=== PATIENT | female | born 1980 | race Caucasian/White ===

== ENCOUNTER → 2018-01-10 15:26 | Outpatient (CLI) | payer OTHER, SELFPAY ==
[2018-01-17 09:48] LABS: HPV APTIMA, High Risk Negative (Negative)
== END ==
PROVIDERS: Visit Provider Nurse Practitioner Women's Health
DX: Z12.4 Encounter for screening for malignant neoplasm of cervix (principal)
CPT/HCPCS: 88175; G0145

== ENCOUNTER → 2019-03-27 09:27 | Outpatient (CLI) | payer OTHER, SELFPAY ==
[2019-03-26 13:19] VITALS: BMI 42.5
[2019-03-27 12:12] LABS: Absolute Lymphocyte Count 2.54 X10^3/uL (0.83-4.51); Absolute Neutrophil Count 6.9 X10^3/uL (2.0-7.7); Basophil# 0.03 X10^3/uL; Basophil% 0.3 % (0-1); Eosinophil# 0.22 X10^3/uL; Eosinophils% 2.2 % (0-5); Hematocrit 40.7 % (37-47); Hemoglobin 12.8 g/dL (12.0-15.0); Lymphocyte # 2.54 X10^3/ul (4.0); Lymphocyte % 24.9 % (19-41); Mean Corp Hgb Conc 31.4 g/dL (32-36); Mean Corpuscular Hgb 28.8 pg (27.0-32.0); Mean Corpuscular Volume 91.5 fL (81-99); Mean Platelet Vol. 11.1 fl (6.2-12.0); Monocyte# 0.51 X10^3/uL; NRBC Flagged by Analyzer 0 % (0-5); Neutrophil # 6.89 X10^3/uL (2.7-7.7); Neutrophil % 67.3 % (47-70); Platelet Count 289 K/mm3 (150-450); RBC Distribution Width SD 43.3 fl (35.1-43.9); Red Blood Count 4.45 M/mm3 (4.2-5.4); White Blood Count 10.2 K/mm3 (4.4-11.0)
[2019-03-27 12:34] LABS: ALB/GLOB Ratio 0.7 RATIO (0.9-2.4); AST(SGOT) 31 U/L (15-37); Alanine Aminotransfer ALT/SGPT 46 U/L (13-56); Albumin, Serum 3.3 g/dL (3.2-5.0); Alkaline Phosphatase 87 U/L (45-117); Anion Gap 5 (5-15); BUN 10 mg/dL (7-18); BUN/Creat Ratio 14.2 RATIO (10-20); Calcium,Total 8.8 mg/dL (8.5-10.1); Chloride 106 mmol/L (98-107); Cholesterol 217 mg/dL (200); Creatinine, Serum 0.71 mg/dL (0.55-1.02); EST Glomerular Filtration Rate 98 mL/min (>60); Est Glom Filt Rate - Afr Amer 119 mL/min (>60); Globulin 4.5 g/dL (2.2-4.2); Glucose 89 mg/dL (74-106); High Density Lipoprotein 69 mg/dL; Potassium 4.2 mmol/L (3.5-5.1); Protein, Total 7.8 g/dL (6.4-8.2); Sodium Level 138 mmol/L (136-145); Triglycerides 178 mg/dL; Very Low Density Lipoprotein 36 mg/dL (5-40)
[2019-03-27 12:37] LABS: Hemoglobin A1c 5.7 % (4.2-6.3)
== END ==
PROVIDERS: PCP Internal Medicine; Visit Provider Internal Medicine
DX: E66.01 Morbid (severe) obesity due to excess calories (principal); Z68.41 Body mass index [BMI] 40.0-44.9, adult; J45.909 Unspecified asthma, uncomplicated
CPT/HCPCS: 36415; 80053; 80061; 83036; 85025

== ENCOUNTER 2019-05-01 14:20 | Outpatient (RCR) | payer SELFPAY ==
[2019-03-26 13:19] VITALS: BMI 42.5
== END 2019-05-01 23:59 ==
LOC: NS 14:20
PROVIDERS: PCP Internal Medicine; Visit Provider Internal Medicine
DX: E78.00 Pure hypercholesterolemia, unspecified (principal); E66.01 Morbid (severe) obesity due to excess calories; Z68.41 Body mass index [BMI] 40.0-44.9, adult
CPT/HCPCS: 97803

== ENCOUNTER 2019-05-15 08:14 | Outpatient (RCR) | payer SELFPAY ==
[2019-03-26 13:19] VITALS: BMI 42.5
== END 2019-05-31 23:59 ==
LOC: NS 08:14
PROVIDERS: PCP Internal Medicine; Visit Provider Internal Medicine
DX: Z71.3 Dietary counseling and surveillance (principal); E66.01 Morbid (severe) obesity due to excess calories; Z68.41 Body mass index [BMI] 40.0-44.9, adult
CPT/HCPCS: 97803

== ENCOUNTER 2019-06-18 15:00 | Outpatient (RCR) | payer SELFPAY ==
[2019-03-26 13:19] VITALS: BMI 42.5
== END 2019-07-01 23:59 ==
LOC: NS 15:00
PROVIDERS: PCP Internal Medicine; Visit Provider Internal Medicine
DX: Z71.3 Dietary counseling and surveillance (principal); E66.01 Morbid (severe) obesity due to excess calories; Z68.41 Body mass index [BMI] 40.0-44.9, adult
CPT/HCPCS: 97803

== ENCOUNTER 2019-07-23 08:30 | Outpatient (RCR) | payer OTHER, SELFPAY ==
[2019-03-26 13:19] VITALS: BMI 42.5
== END 2019-08-01 23:59 ==
LOC: NS 08:30
PROVIDERS: Family Provider Internal Medicine; PCP Internal Medicine; Visit Provider Internal Medicine
DX: Z71.3 Dietary counseling and surveillance (principal); E66.01 Morbid (severe) obesity due to excess calories; Z68.41 Body mass index [BMI] 40.0-44.9, adult
CPT/HCPCS: 97803

== ENCOUNTER 2019-08-20 08:30 | Outpatient (RCR) | payer OTHER, SELFPAY ==
[2019-03-26 13:19] VITALS: BMI 42.5
== END 2019-08-30 23:59 ==
LOC: NS 08:30
PROVIDERS: Family Provider Internal Medicine; PCP Internal Medicine; Visit Provider Internal Medicine
DX: E78.00 Pure hypercholesterolemia, unspecified (principal); Z71.3 Dietary counseling and surveillance; E66.01 Morbid (severe) obesity due to excess calories; Z68.41 Body mass index [BMI] 40.0-44.9, adult
CPT/HCPCS: 97803

== ENCOUNTER 2019-09-18 09:30 | Outpatient (RCR) | payer OTHER, SELFPAY ==
[2019-03-26 13:19] VITALS: BMI 42.5
== END 2019-09-30 23:59 ==
LOC: NS 09:30
PROVIDERS: Family Provider Internal Medicine; PCP Internal Medicine; Visit Provider Internal Medicine
DX: Z71.3 Dietary counseling and surveillance (principal); E66.01 Morbid (severe) obesity due to excess calories; E78.00 Pure hypercholesterolemia, unspecified
CPT/HCPCS: 97803

== ENCOUNTER 2019-10-15 09:30 | Outpatient (RCR) | payer OTHER, SELFPAY ==
[2019-09-26 13:57] VITALS: BMI 42.5
== END 2019-10-30 23:59 ==
LOC: NS 09:30
PROVIDERS: Family Provider Internal Medicine; PCP Internal Medicine; Visit Provider Internal Medicine
DX: Z71.3 Dietary counseling and surveillance (principal); E66.01 Morbid (severe) obesity due to excess calories; E78.00 Pure hypercholesterolemia, unspecified
CPT/HCPCS: 97803

== ENCOUNTER 2019-11-26 10:30 | Outpatient (RCR) | payer OTHER, SELFPAY ==
[2019-09-26 13:57] VITALS: BMI 42.5
== END 2019-11-30 23:59 ==
LOC: NS 10:30
PROVIDERS: Family Provider Internal Medicine; PCP Internal Medicine; Visit Provider Internal Medicine
DX: Z71.3 Dietary counseling and surveillance (principal); E66.01 Morbid (severe) obesity due to excess calories; Z68.41 Body mass index [BMI] 40.0-44.9, adult; E78.00 Pure hypercholesterolemia, unspecified
CPT/HCPCS: 97803

== ENCOUNTER 2019-12-24 09:01 | Outpatient (RCR) | payer OTHER, SELFPAY ==
[2019-09-26 13:57] VITALS: BMI 42.5
== END 2019-12-30 23:59 ==
LOC: NS 09:01
PROVIDERS: Family Provider Internal Medicine; PCP Internal Medicine; Visit Provider Internal Medicine
DX: Z71.3 Dietary counseling and surveillance (principal); E66.01 Morbid (severe) obesity due to excess calories; E78.00 Pure hypercholesterolemia, unspecified; Z68.41 Body mass index [BMI] 40.0-44.9, adult
CPT/HCPCS: 97803

== ENCOUNTER 2020-01-14 08:52 | Outpatient (RCR) | payer OTHER, SELFPAY ==
[2019-09-26 13:57] VITALS: BMI 42.5
== END 2020-01-30 23:59 ==
LOC: NS 08:52
PROVIDERS: Family Provider Internal Medicine; PCP Internal Medicine; Visit Provider Internal Medicine
DX: Z71.3 Dietary counseling and surveillance (principal); E66.01 Morbid (severe) obesity due to excess calories; E78.00 Pure hypercholesterolemia, unspecified; Z68.41 Body mass index [BMI] 40.0-44.9, adult
CPT/HCPCS: 97803

== ENCOUNTER 2020-02-04 09:20 | Outpatient (RCR) | payer OTHER, SELFPAY ==
[2019-09-26 13:57] VITALS: BMI 42.5
== END 2020-03-01 23:59 ==
LOC: NS 09:20
PROVIDERS: Family Provider Internal Medicine; PCP Internal Medicine; Visit Provider Internal Medicine
DX: Z71.3 Dietary counseling and surveillance (principal); E66.01 Morbid (severe) obesity due to excess calories; E78.00 Pure hypercholesterolemia, unspecified; Z68.41 Body mass index [BMI] 40.0-44.9, adult
CPT/HCPCS: 97803

== ENCOUNTER 2020-03-24 13:00 | Outpatient (RCR) | payer OTHER, SELFPAY ==
[2020-02-19 13:48] VITALS: BMI 42.5
== END 2020-03-31 23:59 ==
LOC: NS 13:00
PROVIDERS: Family Provider Internal Medicine; PCP Internal Medicine; Visit Provider Internal Medicine
DX: Z71.3 Dietary counseling and surveillance (principal); E66.01 Morbid (severe) obesity due to excess calories; E78.00 Pure hypercholesterolemia, unspecified; Z68.41 Body mass index [BMI] 40.0-44.9, adult
CPT/HCPCS: 97803

== ENCOUNTER 2020-04-07 10:21 | Outpatient (RCR) | payer OTHER, SELFPAY ==
[2020-02-19 13:48] VITALS: BMI 42.5
== END 2020-05-01 23:59 ==
LOC: NS 10:21
PROVIDERS: Family Provider Internal Medicine; PCP Internal Medicine; Visit Provider Internal Medicine
DX: Z71.3 Dietary counseling and surveillance (principal); E66.01 Morbid (severe) obesity due to excess calories; E78.00 Pure hypercholesterolemia, unspecified; Z68.41 Body mass index [BMI] 40.0-44.9, adult
CPT/HCPCS: 97803

== ENCOUNTER 2020-05-05 10:57 | Outpatient (RCR) | payer OTHER, SELFPAY ==
[2020-02-19 13:48] VITALS: BMI 42.5
== END 2020-05-05 23:59 | disposition home or self-care (01) ==
LOC: NS 10:57
PROVIDERS: Family Provider Internal Medicine; PCP Internal Medicine; Visit Provider Internal Medicine
DX: Z71.3 Dietary counseling and surveillance (principal); E66.01 Morbid (severe) obesity due to excess calories; E78.00 Pure hypercholesterolemia, unspecified; Z68.41 Body mass index [BMI] 40.0-44.9, adult
CPT/HCPCS: 97803

== ENCOUNTER → 2020-09-29 11:00 | Outpatient (CLI) | payer OTHER, SELFPAY ==
[2020-02-19 13:48] VITALS: BMI 42.5
--- NOTE | 2020-09-29 11:26 | MRI_ITS ---
STUDY: MRI RIGHT ANKLE WITHOUT CONTRAST REASON FOR EXAM: Pain in Achilles tendon and palpable mass at the dorsal aspect of the foot for more than 18 months. TECHNIQUE: Standardized fat and water weighted pulse sequences were obtained in all 3 orthogonal planes. COMPARISON: None. FINDINGS: There is mild edema in the posterior medial subcutis adipose space of the ankle and lateral aspect of the distal hindfoot. There is a very small volume of fluid in the distal posterior tibialis tendon sheath (T2 axial images 17, 18). The posterior tibialis tendon is morphologically normal. Normal flexor digitorum longus tendon. Normal flexor hallucis longus tendon. Normal peroneus longus and brevis tendons. Normal tibialis anterior tendon. Normal extensor hallucis longus tendon. There is fluid in the extensor digitorum longus tendon sheath (T2 axial images 8-22). The extensor digitorum longus tendons appear morphologically normal. There is fusiform thickening of the Achilles tendon in the watershed zone measuring 1.1 cm in AP dimension of inversion recovery sagittal images 11, 12) consistent with tendinosis without discrete tendon tear. There is mild edema in Kager''s fat triangle (inversion recovery sagittal images 10-12). Normal plantar fascia. Normal plantar calcaneal tubercles. There is atrophy with partial fat replacement of the abductor digiti minimi muscle (T1 sagittal image 10). Normal distal tibiofibular syndesmotic ligamentous complex. Normal lateral ligamentous complex. Normal subtalar ligaments and sinus tarsi. Normal deltoid ligamentous complexes. Normal plantar calcaneonavicular (spring) ligament. Normal tibiotalar articulation. Normal talar dome. Normal posterior subtalar articulation. There is a nonosseous calcaneonavicular coalition without reactive changes (inversion recovery sagittal image 12). Normal talonavicular articulation. Normal calcaneocuboid articulation. Normal navicular-cuneiform articulations. MRI/Lower Ext Joint Only (Routine) IMPRESSION: Achilles tendinosis. Extensor digitorum longus tenosynovitis, likely accounting for the soft tissue mass. Very mild posterior tibialis tenosynovitis. Nonosseous calcaneonavicular coalition. Atrophy of the abductor digiti minimi muscle. Electronically Signed: Glen Orr MD at 13:23 EDT Tel , Service support ,
== END ==
PROVIDERS: PCP Internal Medicine; Referring Provider Podiatrist; Visit Provider Podiatrist
DX: M25.571 Pain in right ankle and joints of right foot (principal); R22.41 Localized swelling, mass and lump, right lower limb; M76.60 Achilles tendinitis, unspecified leg
CPT/HCPCS: 73721

== ENCOUNTER 2020-10-29 14:00 | Outpatient (RCR) | payer OTHER, SELFPAY ==
[2020-02-19 13:48] VITALS: BMI 42.5
--- NOTE | 2020-10-07 08:51 | HP.PTEVAL_ITS ---
Patient's Visit Information CINDI MENDOSA is a 40 year old F referred to Physical Therapy by Dr. Wicho Sawyer DPM with a diagnosis of B achilles tendonitis. Date of Evaluation: 10/07/20 Physical Therapist: Matthieu Kaur DPT - Visit Plan Frequency: 1-2x /Week Duration: 4-6 Weeks Plan: 1) Start with B G/S stretching, stress frequency of stretching for HEP. 2) add in stick rolling/graston to achilles and G/S complex. 3) Progress to eccentric exercises as tolerated. 4) may use US or DN if needed for pain control. - Subjective Pt. is here today for initial evaluation with diagnosis of B achilles tendonitis with R being worse than L. Pt. reports having pain that started having pain about 18 months ago, no mech of injury. Pt. has increased pain in AMs and worse at the end of the day. Difficulty with prolonged walking. Increased pain: initial waking, walking, descending steps. Decrease pain: getting off feet, but tightens with sitting. Pt. is wearing a night slipt, but unbale to wear at night. 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 PT. is hopeful to reduce symptoms in order to get back to all recreational activites and work activities without limitations. - Pain R achilles Pain Intensity (Out of 10): 6 Pain Intensity Range: 4, 8 L achilles Pain Intensity (Out of 10): 4 Pain Intensity Range: 3, 7 - Objective POSTURE: Pt. has normal posture in stance. Pt. has normal arch height. Normal wt. shifting. PALPATION: Pt. is only tender along B achilles tendons, worse at mid tendon and muscle-tendon junction. R worse than L. NEURO: Normal sensation and normal DTR of BLEs. Pt is able to walk on toes and heels without issues. ROM: Pt has good knee ROM bilaterally. Pt. has good ankle ROM, except for R DF 8deg active, 10deg passive with increase in pain and L DF 6deg active, 9 deg passive mild increase in pain. MMT: Pt. has good strength throughout BLEs, but does have increased pain with standing heel raises in B achilles tendons. R worse than L. GAIT: - Goals Goal 1:: LTG: Pt. to be I with HEP for stretching and eccentric strengthening of B ankle/LEs. Goal Time Frame: 4-6 Weeks Goal 2:: STG: Pt. to have decrease pain with initial walking in AM to 0-2/10 pain in B achilles. Goal Time Frame: 2-4 Weeks Goal 3:: LTG: Pt. to ambulate unlimited distances without increase in B achilles tendon pain. Goal Time Frame: 4-6 Weeks Goal 4:: LTG: Pt. to have increased B ankle DF increased to atleast 15deg of passive motion. Goal Time Frame: 4-6 Weeks Goal 5:: LTG: Pt. to be able to complete SL heel raises x10/ea. leg without increase in symptoms. Goal Time Frame: 4-6 Weeks Goal 6:: LTG: Pt. to complete all work and recreational walking without increase in symptoms. Goal Time Frame: 4-6 Weeks - Rehabilitation Potential Physical Therapy Diagnosis: Pt. has signs and symptoms consistent with B achilles tendonitis. Pt. has been having main for several months and is impact ing her standing, walking, fitness and working tolerance. Pt. has subsequent pain with increased load applied to B achilles tendons and shortened B achilles tendon lengths. Pt. would benefit from PT to address the above limitations progressing back to all recreational activities without limitations. Rehabilitation Potential: Excellent - Anticipated Interventions Patient/Client Instruction: Educate patient on: Condition, Plan of Care, Risk Factors, Benefits of Fitness Program For the Purpose of:: To improve self management, To prevent re-injury, To improve ability to perform tasks related to life management, To improve tolerance to ADL's Therapeutic Exercise to Include: Strength training, Power training, Endurance training, Balance training, Coordination, Agility training, Body mechanics, Passive ROM, Active ROM For the Purpose of:: To decrease pain, To increase ROM, To improve nutrient delivery to tissue, To increase oxygenation perfusion, To improve muscle performance and motor function, To improve ability to perform ADL's, To increase tolerance to activity/condition/position, To improve health of tissue, To decrease soft tissue restriction, To increase flexibility/ROM Ultrasound (thermal/non thermal): Yes For the Purpose of:: To decrease pain, To decrease swelling/inflammation, To increase ROM Thank you for the opportunity to evaluate your patient. For Medicare and Medicare HMO plans, please review the plan of care and approve it. It will need to be FAXED BACK to us at [phone] for Medicare purposes. For Medicare only, by signing this I certify the plan of care. Please let me know if there are questions or concerns regarding this plan of care. Physician Signature: Date:
--- NOTE | 2020-12-06 14:58 | HP.PT.NRP ---
CINDI MENDOSA was seen in my office for initial evaluation on 10/07/20. The following Plan of Care was established for this patient: Initial Frequency: 1-2x /Week Initial Duration: 4-6 Weeks Patient/Client Instruction: Educate patient on: Condition, Plan of Care, Risk Factors, Benefits of Fitness Program For the Purpose of:: To improve self management, To prevent re-injury, To improve ability to perform tasks related to life management, To improve tolerance to ADL's Therapeutic Exercise to Include: Strength training, Power training, Endurance training, Balance training, Coordination, Agility training, Body mechanics, Passive ROM, Active ROM For the Purpose of:: To decrease pain, To increase ROM, To improve nutrient delivery to tissue, To increase oxygenation perfusion, To improve muscle performance and motor function, To improve ability to perform ADL's, To increase tolerance to activity/condition/position, To improve health of tissue, To decrease soft tissue restriction, To increase flexibility/ROM Ultrasound (thermal/non thermal): Yes For the Purpose of:: To decrease pain, To decrease swelling/inflammation, To increase ROM This patient was last seen in our office 10/29/20. Pertinent comments regarding their Physical therapy will appear below: Pt. was seen in PT for her B Achilles tendonitis. She was also doing EPAT during this time frame. At her last visit she was doing much better. She was not been seen in ~6 weeks and will be DC from PT at this point in time. At this point I will be discontinuing this patient from physical therapy. I would be happy to see this patient again in the future if found appropriate by the physician. Thank you! MARVIN BarraganT
== END 2020-10-29 19:00 | disposition home or self-care (01) ==
LOC: PT 14:00
PROVIDERS: PCP Internal Medicine; Referring Provider Podiatrist; Visit Provider Podiatrist
DX: M76.62 Achilles tendinitis, left leg (principal); M76.61 Achilles tendinitis, right leg
CPT/HCPCS: 97110; 97161

== ENCOUNTER → 2021-01-05 12:09 | Outpatient (CLI) | payer OTHER, SELFPAY ==
[2021-01-05 11:42] VITALS: BMI 42.5
== END ==
PROVIDERS: PCP Internal Medicine; Referring Provider Nurse Practitioner Women's Health; Visit Provider Nurse Practitioner Women's Health
DX: L72.3 Sebaceous cyst (principal)
CPT/HCPCS: 87070; 87205

== ENCOUNTER → 2021-02-23 08:11 | Outpatient (CLI) | payer OTHER, SELFPAY ==
[2020-02-19 13:48] VITALS: BMI 42.5
--- NOTE | 2021-02-23 08:42 | BI_ITS ---
MAMMOGRAPHY - BILATERAL SCREENING REASON FOR EXAM: Female, 40 years old. Routine annual screening examination. PERTINENT HISTORY: Non-contributory. TECHNIQUE: Digital bilateral breast sujatha (3D mammographic acquisition) in the CC and MLO projections. 2-D mediolateral oblique (MLO) and craniocaudad (CC) views of both breasts were obtained. CAD: Full Field Digital Mammography with Computer Added Detection was performed. COMPARISON: None. Baseline examination. FINDINGS: Breast Composition: There are scattered areas of fibroglandular density. There are no dominant masses or suspicious calcifications. Small benign appearing bilateral axillary lymph nodes. No other significant abnormalities are identified. BI/SCRN MAMM (CAD)W/SUJATHA BILAT IMPRESSION: Negative screening mammogram. Yearly followup mammogram recommended. (A) ASSESSMENT CATEGORY: BIRADS Category 2: Benign. A letter regarding these results will be sent to the patient by the facility within 30 days. Approximately 10% of breast cancers are not detected by mammography. A normal mammogram should not delay biopsy of a clinically suspicious abnormality. [id number] Electronically Signed: Yuval Sanchez MD at 9:57 EDT , Service support ,
== END ==
PROVIDERS: PCP Internal Medicine; Referring Provider Nurse Practitioner Women's Health; Visit Provider Nurse Practitioner Women's Health
DX: Z12.31 Encounter for screening mammogram for malignant neoplasm of breast (principal)
CPT/HCPCS: 77063; 77067

== ENCOUNTER → 2022-02-17 | Outpatient (CLI) | payer OTHER, SELFPAY ==
[2022-02-17 12:32] LABS: Absolute Lymphocyte Count 2.62 X10^3/uL (0.83-4.51); Absolute Neutrophil Count 6.1 X10^3/uL (2.0-7.7); Basophil# 0.02 X10^3/uL; Basophil% 0.2 % (0-1); Eosinophil# 0.11 X10^3/uL; Eosinophils% 1.2 % (0-5); Hematocrit 40.8 % (37-47); Hemoglobin 12.8 g/dL (12.0-15.0); Lymphocyte # 2.62 X10^3/ul (0.83-4.51); Lymphocyte % 27.8 % (19-41); Mean Corp Hgb Conc 31.4 g/dL (32-36); Mean Corpuscular Volume 92.3 fL (81-99); Mean Platelet Vol. 11.2 fl (6.2-12.0); Monocyte% 5.3 % (0-10); NRBC Flagged by Analyzer 0 % (0-5); Neutrophil # 6.13 X10^3/uL (2.7-7.7); Neutrophil % 65.2 % (47-70); Platelet Count 289 K/mm3 (150-450); RBC Distribution Width CV 13.6 % (11.6-14.6); RBC Distribution Width SD 46.5 fl (35.1-43.9); Red Blood Count 4.42 M/mm3 (4.2-5.4); White Blood Count 9.4 K/mm3 (4.4-11.0)
[2022-02-17 13:08] LABS: ALB/GLOB Ratio 0.9 RATIO (0.9-2.4); AST(SGOT) 20 U/L (15-37); Alanine Aminotransfer ALT/SGPT 22 U/L (13-56); Albumin, Serum 3.5 g/dL (3.2-5.0); Alkaline Phosphatase 78 U/L (45-117); Anion Gap 5 (5-15); BUN 9 mg/dL (7-18); BUN/Creat Ratio 13.8 RATIO (10-20); Calcium,Total 9.2 mg/dL (8.5-10.1); Chloride 107 mmol/L (98-107); Cholesterol 212 mg/dL (200); Creatinine, Serum 0.65 mg/dL (0.55-1.02); EST Glomerular Filtration Rate 106 mL/min (>60); Est Glom Filt Rate - Afr Amer 129 mL/min (>60); Globulin 4.1 g/dL (2.2-4.2); Glucose 98 mg/dL (74-106); High Density Lipoprotein 82 mg/dL; Potassium 4.6 mmol/L (3.5-5.1); Protein, Total 7.6 g/dL (6.4-8.2); Sodium Level 138 mmol/L (136-145); Triglycerides 88 mg/dL; Very Low Density Lipoprotein 18 mg/dL (5-40)
== END | disposition home or self-care (01) ==
PROVIDERS: PCP Internal Medicine; Referring Provider Internal Medicine; Visit Provider Internal Medicine
DX: Z00.00 Encounter for general adult medical examination without abnormal findings (principal)
CPT/HCPCS: 36415; 80053; 80061; 85025

== ENCOUNTER → 2022-02-24 | Outpatient (CLI) | payer OTHER, SELFPAY ==
--- NOTE | 2022-02-24 12:22 | BI_ITS ---
MAMMOGRAPHY - BILATERAL SCREENING REASON FOR EXAM: Female, 41 years old. Routine annual screening examination. PERTINENT HISTORY: Non-contributory. TECHNIQUE: Digital bilateral breast sujatha (3D mammographic acquisition) in the CC and MLO projections. 2-D mediolateral oblique (MLO) and craniocaudad (CC) views of both breasts were obtained. CAD: Full Field Digital Mammography with Computer Added Detection was performed. COMPARISON: Comparison is made with prior examination dated 02/23/2021. FINDINGS: Breast Composition: There are scattered areas of fibroglandular density. There are no dominant masses or suspicious calcifications. Once again, there is asymmetry of breast tissue where more breast tissue is seen in the upper-outer quadrant of the left breast as compared to the right side. Stable small benign-appearing bilateral axillary lymph nodes. No other significant abnormalities are identified. There has been no significant change since the prior study. BI/SCRN MAMM (CAD)W/SUJATHA BILAT IMPRESSION: Stable bilateral screening mammogram. Yearly follow-up mammogram recommended. (A) ASSESSMENT CATEGORY: BIRADS Category 2: Benign. A letter regarding these results will be sent to the patient by the facility within 30 days. Approximately 10% of breast cancers are not detected by mammography. A normal mammogram should not delay biopsy of a clinically suspicious abnormality. [id number] Electronically Signed: Yuval Sanchez MD at 13:15 EDT ,
== END | disposition home or self-care (01) ==
LOC: OPBI 12:19
PROVIDERS: PCP Internal Medicine; Visit Provider Nurse Practitioner Women's Health
DX: Z12.31 Encounter for screening mammogram for malignant neoplasm of breast (principal)
CPT/HCPCS: 77063; 77067

== ENCOUNTER → 2023-03-02 | Outpatient (CLI) | payer OTHER, SELFPAY ==
--- NOTE | 2023-03-02 07:35 | BI_ITS ---
MAMMOGRAPHY - BILATERAL SCREENING REASON FOR EXAM: Female, 42 years old. Routine annual screening examination. PERTINENT HISTORY: Non-contributory. TECHNIQUE: Digital bilateral breast sujatha (3D mammographic acquisition) in the CC and MLO projections. 2-D mediolateral oblique (MLO) and craniocaudad (CC) views of both breasts were obtained. CAD: Full Field Digital Mammography with Computer Added Detection was performed. COMPARISON: Comparison is made with prior study February 24, 2022 and February 23, 2021. FINDINGS: Breast Composition: There are scattered areas of fibroglandular density. There are no dominant masses or suspicious calcifications. Stable asymmetry of breast tissue with more breast tissue is seen in the upper-outer quadrant of the left breast as compared to the right side. Stable small fat-containing bilateral axillary lymph nodes. No other significant abnormalities are identified. There has been no significant change since the prior study. BI/SCRN MAMM (CAD)W/SUJATHA BILAT IMPRESSION: Stable bilateral screening mammogram. Yearly follow-up mammogram recommended. (A) ASSESSMENT CATEGORY: BIRADS Category 2: Benign. A letter regarding these results will be sent to the patient by the facility within 30 days. Approximately 10% of breast cancers are not detected by mammography. A normal mammogram should not delay biopsy of a clinically suspicious abnormality. [id number] Electronically Signed: Yuval Sanchez MD at 9:54 EDT ,
== END | disposition home or self-care (01) ==
LOC: OPBI 07:33
PROVIDERS: PCP Internal Medicine; Referring Provider Nurse Practitioner Women's Health; Visit Provider Nurse Practitioner Women's Health
DX: Z12.31 Encounter for screening mammogram for malignant neoplasm of breast (principal)
CPT/HCPCS: 77063; 77067

== ENCOUNTER → 2023-03-15 | Outpatient (CLI) | payer OTHER, SELFPAY ==
[2023-03-19 09:07] LABS: HPV APTIMA, High Risk Negative (Negative)
== END | disposition home or self-care (01) ==
PROVIDERS: PCP Internal Medicine; Referring Provider Nurse Practitioner Women's Health; Visit Provider Nurse Practitioner Women's Health
DX: Z12.4 Encounter for screening for malignant neoplasm of cervix (principal)
CPT/HCPCS: 87624; 88175; G0145

== ENCOUNTER → 2023-04-23 | Outpatient (CLI) | payer OTHER, SELFPAY ==
[2023-04-23 16:47] LABS: Absolute Lymphocyte Count 3.09 X10^3/uL (0.83-4.51); Absolute Neutrophil Count 7.6 X10^3/uL (2.0-7.7); Basophil# 0.03 X10^3/uL; Basophil% 0.3 % (0-1); Eosinophils% 1.7 % (0-5); Hematocrit 40.8 % (37-47); Lymphocyte # 3.09 X10^3/ul (0.83-4.51); Lymphocyte % 26.8 % (19-41); Mean Corp Hgb Conc 31.9 g/dL (32-36); Mean Corpuscular Hgb 29.7 pg (27.0-32.0); Mean Corpuscular Volume 93.2 fL (81-99); Mean Platelet Vol. 10.7 fl (6.2-12.0); Monocyte# 0.54 X10^3/uL; Monocyte% 4.7 % (0-10); NRBC Flagged by Analyzer 0 % (0-5); Neutrophil # 7.62 X10^3/uL (2.7-7.7); Neutrophil % 66.1 % (47-70); Platelet Count 318 K/mm3 (150-450); RBC Distribution Width CV 12.6 % (11.6-14.6); RBC Distribution Width SD 43.3 fl (35.1-43.9); Red Blood Count 4.38 M/mm3 (4.2-5.4); White Blood Count 11.5 K/mm3 (4.4-11.0)
[2023-04-23 17:17] LABS: ALB/GLOB Ratio 0.8 RATIO (0.9-2.4); AST(SGOT) 14 U/L (15-37); Alanine Aminotransfer ALT/SGPT 20 U/L (13-56); Albumin, Serum 3.5 g/dL (3.2-5.0); Alkaline Phosphatase 83 U/L (45-117); Anion Gap 5 (5-15); BUN 10 mg/dL (7-18); BUN/Creat Ratio 13.6 RATIO (10-20); Calcium,Total 9.4 mg/dL (8.5-10.1); Chloride 106 mmol/L (98-107); Cholesterol 214 mg/dL (200); Creatinine, Serum 0.74 mg/dL (0.55-1.02); EST Glomerular Filtration Rate 92 mL/min (>60); Est Glom Filt Rate - Afr Amer 111 mL/min (>60); Globulin 4.4 g/dL (2.2-4.2); Glucose 89 mg/dL (74-106); High Density Lipoprotein 81 mg/dL; Protein, Total 7.9 g/dL (6.4-8.2); Sodium Level 138 mmol/L (136-145); Triglycerides 107 mg/dL; Very Low Density Lipoprotein 21 mg/dL (5-40)
== END | disposition home or self-care (01) ==
LOC: BIMLAB 15:17
PROVIDERS: PCP Internal Medicine; Referring Provider Internal Medicine; Visit Provider Internal Medicine
DX: Z00.00 Encounter for general adult medical examination without abnormal findings (principal)
CPT/HCPCS: 36415; 80053; 80061; 85025

== ENCOUNTER → 2024-03-13 | Outpatient (CLI) | payer OTHER, SELFPAY ==
--- NOTE | 2024-03-13 11:38 | BI_ITS ---
MAMMOGRAPHY - BILATERAL SCREENING REASON FOR EXAM: Female, 43 years old. Routine annual screening examination. PERTINENT HISTORY: Non-contributory. TECHNIQUE: Digital bilateral breast sujatha (3D mammographic acquisition) in the CC and MLO projections. 2-D mediolateral oblique (MLO) and craniocaudad (CC) views of both breasts were obtained. CAD: Full Field Digital Mammography with Computer Added Detection was performed. COMPARISON: Comparison is made with prior study March 02, 2023 and February 24, 2022. FINDINGS: Breast Composition: There are scattered areas of fibroglandular density. There are no dominant masses or suspicious calcifications. Stable small fat-containing bilateral axillary lymph nodes. No other significant abnormalities are identified. There has been no significant change since the prior study. BI/SCRN MAMM (CAD)W/SUJATHA BILAT IMPRESSION: Stable bilateral screening mammogram. Yearly follow-up mammogram recommended. (A) ASSESSMENT CATEGORY: BIRADS Category 2: Benign. A letter regarding these results will be sent to the patient by the facility within 30 days. Approximately 10% of breast cancers are not detected by mammography. A normal mammogram should not delay biopsy of a clinically suspicious abnormality. [id number] Electronically Signed: Yuval Sanchez MD at 13:03 EDT ,
== END | disposition home or self-care (01) ==
LOC: OPBI 11:38
PROVIDERS: PCP Internal Medicine; Referring Provider Nurse Practitioner Women's Health; Visit Provider Nurse Practitioner Women's Health
DX: Z12.31 Encounter for screening mammogram for malignant neoplasm of breast (principal)
CPT/HCPCS: 77063; 77067

== ENCOUNTER → 2024-05-09 | Outpatient (CLI) | payer OTHER, SELFPAY ==
[2024-05-09 12:20] LABS: Absolute Lymphocyte Count 1.96 X10^3/uL (0.83-4.51); Absolute Neutrophil Count 4.9 X10^3/uL (2.0-7.7); Basophil# 0.03 X10^3/uL; Basophil% 0.4 % (0-1); Eosinophil# 0.11 X10^3/uL; Eosinophils% 1.5 % (0-5); Hematocrit 39.4 % (37-47); Hemoglobin 13.1 g/dL (12.0-15.0); Lymphocyte # 1.96 X10^3/ul (0.83-4.51); Lymphocyte % 26.1 % (19-41); Mean Corp Hgb Conc 33.2 g/dL (32-36); Mean Corpuscular Hgb 30.5 pg (27.0-32.0); Mean Corpuscular Volume 91.6 fL (81-99); Monocyte# 0.45 X10^3/uL; NRBC Flagged by Analyzer 0 % (0-5); Neutrophil # 4.93 X10^3/uL (2.7-7.7); Neutrophil % 65.6 % (47-70); Platelet Count 273 K/mm3 (150-450); RBC Distribution Width CV 12.8 % (11.6-14.6); RBC Distribution Width SD 42.4 fl (35.1-43.9); White Blood Count 7.5 K/mm3 (4.4-11.0)
[2024-05-09 13:30] LABS: ALB/GLOB Ratio 0.8 RATIO (0.9-2.4); AST(SGOT) 15 U/L (15-37); Alanine Aminotransfer ALT/SGPT 21 U/L (13-56); Albumin, Serum 3.5 g/dL (3.2-5.0); Alkaline Phosphatase 59 U/L (45-117); Anion Gap 7 (5-15); BUN 14 mg/dL (7-18); BUN/Creat Ratio 19.7 RATIO (10-20); Chloride 108 mmol/L (98-107); Cholesterol 231 mg/dL (200); Creatinine, Serum 0.71 mg/dL (0.55-1.02); EST Glomerular Filtration Rate 95 mL/min (>60); Est Glom Filt Rate - Afr Amer 115 mL/min (>60); Globulin 4.2 g/dL (2.2-4.2); Glucose 89 mg/dL (74-106); High Density Lipoprotein 89 mg/dL; Potassium 4.4 mmol/L (3.5-5.1); Protein, Total 7.7 g/dL (6.4-8.2); Sodium Level 137 mmol/L (136-145); Triglycerides 66 mg/dL; Very Low Density Lipoprotein 13 mg/dL (5-40)
== END | disposition home or self-care (01) ==
LOC: BIMLAB 09:10
PROVIDERS: PCP Internal Medicine; Referring Provider Internal Medicine; Visit Provider Internal Medicine
DX: Z00.00 Encounter for general adult medical examination without abnormal findings (principal)
CPT/HCPCS: 36415; 80053; 80061; 85025

== ENCOUNTER 2024-05-26 12:49 | Emergency (ER) | payer OTHER, SELFPAY ==
[2024-05-26 12:50] VITALS: BP 152/95; PULSE 78; RESP 16; TEMP 35.7; O2SAT 100; BMI 31.4
[2024-05-26 13:28] LABS: Color, Urine Yellow (Yellow); Glucose, Dipstick Normal (Normal); Ketone-Dipstick 50 mg/dl (Negative); Leukocyte Esterase-Dipstick 25 /ul (Negative); Nitrite-Dipstick Negative (Negative); Occult Blood-Urine 250 /ul (Negative); Protein-Dipstick 30 mg/dl (Negative); Specific Gravity, Urine 1.025 (1.002-1.030); Urine Bilirubin Dipstick Negative (Negative); Urine Clarity Sl. Cloudy (Clear); Urine Urobilinogen Normal (Normal)
[2024-05-26 13:28] LABS: Absolute Neutrophil Count 7.6 X10^3/uL (2.0-7.7); Basophil# 0.03 X10^3/uL; Basophil% 0.3 % (0-1); Eosinophil# 0.18 X10^3/uL; Eosinophils% 1.7 % (0-5); Hematocrit 40.3 % (37-47); Hemoglobin 13.2 g/dL (12.0-15.0); Lymphocyte % 20.5 % (19-41); Mean Corp Hgb Conc 32.8 g/dL (32-36); Mean Corpuscular Hgb 29.9 pg (27.0-32.0); Mean Corpuscular Volume 91.4 fL (81-99); Mean Platelet Vol. 9.8 fl (6.2-12.0); Monocyte# 0.68 X10^3/uL; Monocyte% 6.3 % (0-10); NRBC Flagged by Analyzer 0 % (0-5); Neutrophil % 70.9 % (47-70); Platelet Count 303 K/mm3 (150-450); RBC Distribution Width CV 12.2 % (11.6-14.6); RBC Distribution Width SD 41.1 fl (35.1-43.9); Red Blood Count 4.41 M/mm3 (4.2-5.4); White Blood Count 10.7 K/mm3 (4.4-11.0)
[2024-05-26 13:38] LABS: Amorphous Sediment 1+; Bacteria 2+ /hpf (None Seen); Red Blood Cells-Urine 0-5 SEEN /hpf (0-5); Squamous Epithelial Cells - UA 5-10 SEEN /hpf (5-10); White Blood Cells 0-5 SEEN /hpf (0-5)
[2024-05-26 13:39] LABS: Mucous, Urine 2+ /hpf (<or=2+)
[2024-05-26 13:42] LABS: Internal QC Validated? YES +Cl - CLEAR BKGD; Pregnancy, Serum, hCG Quali. NEGATIVE Negative
--- NOTE | 2024-05-26 13:49 | CT_ITS ---
EXAM: CT ABDOMEN AND PELVIS WITHOUT INTRAVENOUS CONTRAST CLINICAL INDICATION: Pain TECHNIQUE: Helically acquired images were obtained of the abdomen and pelvis without intravenous contrast. This CT exam was performed using one or more of the following dose reduction techniques: automated exposure control, adjustment of the mA and/or kV according to patient size, and/or use of iterative reconstruction technique. RADIATION DOSE: CTDIvol = 13.26 mGy, DLP = 699.10 mGy-cm COMPARISON: No relevant prior studies available. FINDINGS: LOWER THORAX: Unremarkable. Lung bases are clear. No cardiomegaly. No significant pericardial effusion. ABDOMEN: LIVER: Unremarkable. Homogeneous. GALLBLADDER AND BILE DUCTS: Unremarkable. No calcified gallstones. No gallbladder distention or wall edema. No intra- or extrahepatic biliary ductal dilation. PANCREAS: Unremarkable. No focal cystic mass. SPLEEN: Unremarkable. Normal size without focal cystic or solid mass. ADRENALS: Unremarkable. No nodules. KIDNEYS AND URETERS: Mild right hydronephrosis. This is suspiciously secondary to tiny partially obstructing stone in the right distal ureter adjacent calcified phleboliths. No stones in the right kidney. No stones or hydronephrosis in the left kidney. Normal renal size and position. STOMACH AND BOWEL: Small diverticula in the sigmoid colon without diverticulitis. No stomach or bowel distention. PELVIS: APPENDIX: Normal. BLADDER: Unremarkable. No stones or mass in the nearly empty urinary bladder. REPRODUCTIVE: Unremarkable as visualized. No mass. ABDOMEN and PELVIS: INTRAPERITONEAL SPACE: Unremarkable. No ascites or other fluid collection. No free air. BONES/JOINTS: Unremarkable. No suspicious lytic or blastic abnormality. SOFT TISSUES: Unremarkable. No discrete abdominal or pelvic wall hernia. VASCULATURE: Unremarkable. Abdominal aorta is non-dilated. LYMPH NODES: Unremarkable. No enlarged lymph nodes. CT/Abdomen/Pelvis without Cont IMPRESSION: 1. Mild right hydronephrosis secondary to tiny partially obstructing stone in the right distal ureter adjacent calcified phleboliths. 2. Sigmoid diverticulosis without diverticulitis. Electronically Signed: Rosalino Walter MD at 14:51 EST ,
[2024-05-26 13:50] LABS: ALB/GLOB Ratio 0.9 RATIO (0.9-2.4); AST(SGOT) 18 U/L (15-37); Alanine Aminotransfer ALT/SGPT 18 U/L (13-56); Albumin, Serum 3.7 g/dL (3.2-5.0); Alkaline Phosphatase 61 U/L (45-117); Anion Gap 7 (5-15); BUN 12 mg/dL (7-18); BUN/Creat Ratio 11.4 RATIO (10-20); Calcium,Total 9.4 mg/dL (8.5-10.1); Chloride 108 mmol/L (98-107); Creatinine, Serum 1.05 mg/dL (0.55-1.02); EST Glomerular Filtration Rate 61 mL/min (>60); Est Glom Filt Rate - Afr Amer 73 mL/min (>60); Estimated Creatinine Clearance 72.01 ml/min; Globulin 4.1 g/dL (2.2-4.2); Glucose 88 mg/dL (74-106); Potassium 3.7 mmol/L (3.5-5.1); Protein, Total 7.8 g/dL (6.4-8.2); Sodium Level 138 mmol/L (136-145)
--- NOTE | 2024-05-26 13:51 | EDS_ITS ---
HPI <ALBA Braun - Last Filed: 05/26/24 15:13> History of Present Illness Chief Complaint: Abd Pain Narrative Narrative: Patient is a 43-year-old female with no significant medical history who presents to the emergency department for 2 to 3 days of right flank pain, right mid abdominal pain. Patient states that she did develop some back pain. She denies any vomiting however did have some nausea. She denies any fever however did have subjective chills. Here for evaluation. PFSH <ALBA Braun - Last Filed: 05/26/24 15:13> [facility]LY [facility] Medical History Acute maxillary sinusitis, unspecified Preventative health care Indigestion Diarrhea Restless legs Joint stiffness Joint pain SOB (shortness of breath) Earache Bone fracture Asthma Seasonal allergies Home Medications ?Medication ?Instructions ?Recorded ?Last Taken ?Type ondansetron 4 mg disintegrating 4 mg PO Q8H PRN PRN Nausea #10 tabs 05/26/24 Unknown Rx tablet oxycodone-acetaminophen 5 mg-325 1 tab PO Q8H PRN pain 3 days #10 05/26/24 Unknown Rx mg tablet (Percocet) tabs sulfamethoxazole 800 1 tab PO BID #14 tabs 05/26/24 Unknown Rx mg-trimethoprim 160 mg tablet (Bactrim DS) tamsulosin 0.4 mg capsule (Flomax) 0.4 mg PO DAILY #7 caps 05/26/24 Unknown Rx Allergy/AdvReac Type Severity Reaction Status Date / Time No Known Allergies Allergy Verified 05/26/24 12:50 Family History Father Diabetes Hypertension Asthma Hyperlipidemia Grandfather Myocardial infarction Surgical History Hx of cholecystectomy History of total right hip arthroplasty Tubal ligation status History of section Gallbladder & bile duct stone with obstruction Social History sexually active: Yes Smoking Status: Never smoker alcohol intake: current alcohol intake frequency: holidays/special occasions only substance use type: does not use caffeine: Yes Type: coffee Number of servings: 1 what type of physical activity do you participate in: none seatbelt use: always do you feel safe at home: Yes 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 Positive right mid to lateral abdomen pain : Negative for any urinary frequency, dysuria, retention, blood in urine Muscle skeletal: Negative for any neck pain. Positive for lower back pain, right worse to the right side Neurological: Negative for any headache, syncope, dizziness Skin: Negative for any rashes, itching, abrasions, lacerations Psychiatric: Negative for any depression, anxiety, stress, suicidal ideation, homicidal ideation Hematologic: Negative for any excessive bruising, easy bleeding EXAM <ALBA Braun - Last Filed: 05/26/24 15:13> Physical Exam Narrative Exam Narrative: Vital signs reviewed. HEET: Head normocephalic atraumatic, TMs clear bilaterally. Posterior pharynx is clear, moist mucous membranes. Nares clear bilaterally. Neck: Supple with no lymphadenopathy or tenderness. No signs of meningismus. Cardiac: Regular rate and rhythm no murmurs gallops or rubs, equal peripheral pulses bilaterally. Respiratory: Lungs clear to auscultation bilaterally. No chest tenderness. Abdomen: Soft, nontender, nondistended. No abdominal bruit or pulsatile masses. No hepatosplenomegaly Extremities: No peripheral edema, no signs of gross trauma or deformity. Active full range of motion of all extremities. Neuro: Cranial nerves II through XII intact, no focal neurological deficits. Skin: Clean dry and intact with no rash, purpura, petechiae, vesicles or pustules. Backs/flank: Positive for right sided CVA tenderness, no midline spinal tenderness, no deformity. Psych: Normal mood and affect. No SI, HI or acute psychosis. Const Vital Signs: 05/26/24 12:50 05/26/24 14:49 Temperature 96.3 F L Temperature Source Temporal Pulse Rate 78 60 Respiratory Rate 16 16 Blood Pressure 152/95 H 130/80 H Blood Pressure Mean 114 96 Pulse Ox 100 100 Oxygen Delivery Method Room Air <Dr. Juan Carlos Merritt DO - Last Filed: 05/26/24 15:01> Physical Exam Const Vital Signs: 05/26/24 12:50 05/26/24 14:49 Temperature 96.3 F L Temperature Source Temporal Pulse Rate 78 60 Respiratory Rate 16 16 Blood Pressure 152/95 H 130/80 H Blood Pressure Mean 114 96 Pulse Ox 100 100 Oxygen Delivery Method Room Air MDM <ALBA Braun - Last Filed: 05/26/24 15:13> MDM Lab Data Labs: Laboratory Results - last 24 hr 05/26/24 05/26/24 13:18 13:22 WBC 10.7 RBC 4.41 Hgb 13.2 Hct 40.3 MCV 91.4 MCH 29.9 MCHC 32.8 RDW Std Deviation 41.1 RDW Coeff of Jerri 12.2 Plt Count 303 MPV 9.8 Immature Gran % (Auto) 0.300 Neut % (Auto) 70.9 H Lymph % (Auto) 20.5 Blount % (Auto) 6.3 Eos % (Auto) 1.7 Baso % (Auto) 0.3 Absolute Neuts (auto) 7.6 Absolute Lymphs (auto) 2.20 Nucleated RBC % 0 Sodium 138 Potassium 3.7 Chloride 108 H Carbon Dioxide 24.0 Anion Gap 7 BUN 12 Creatinine 1.05 H Estim Creat Clear Calc 72.01 Est GFR (MDRD) Af Amer 73 Est GFR (MDRD) Non-Af 61 BUN/Creatinine Ratio 11.4 Glucose 88 Calcium 9.4 Total Bilirubin 0.50 AST 18 ALT 18 Alkaline Phosphatase 61 Total Protein 7.8 Albumin 3.7 Globulin 4.1 Albumin/Globulin Ratio 0.9 Lipase 37 Serum , Qual NEGATIVE Urine Color Yellow Urine Clarity Sl. Cloudy Urine pH 6.0 Ur Specific [place] 1.025 Urine Protein 30 H Urine Glucose (UA) Normal Urine Ketones 50 H Urine Occult Blood 250 H Urine Nitrite Negative Urine Bilirubin Negative Urine Urobilinogen Normal Ur Leukocyte Esterase 25 H Urine RBC 0-5 SEEN Urine WBC 0-5 SEEN Ur Squamous Epith Cells 5-10 SEEN Amorphous Sediment 1+ Urine Bacteria 2+ Urine Mucus 2+ Radiography Diagnostic Testing: Clinical Impression(s) from Imaging Studies Abdomen/Pelvis CT 05/26/24 13:49 IMPRESSION: 1. Mild right hydronephrosis secondary to tiny partially obstructing stone in the right distal ureter adjacent calcified phleboliths. 2. Sigmoid diverticulosis without diverticulitis. Electronically Signed: Rosalino Walter MD at 14:51 EST , Treatment and Re-Evaluation :: Differential diagnosis includes however is not limited to: Obstructing uropathy, pyelonephritis, UTI, infected stone, BRIAN Patient appears generally well, vital signs are stable, patient is nontoxic- appearing. Presenting to the emerged department with complaints of right sided abdominal pain, right-sided flank pain lower back pain for the last 2 to 3 days.Patient's CBC was unremarkable, patient's chemistries show a creatinine of 1.05, this is a jump from 09 May which was 0.7. Patient's serum was negative. Urinalysis did show 2+ bacteria 25 leukocytes, 250 blood. 30 of protein. 50 ketones. Secondary to this finding, patient received CT scan of the abdomen pelvis. Patient given IV fluids, IV Zofran, IV Toradol. All radiologic examinations were read, reviewed by the emergency department attending. From these reads, a plan of care will be put in place. Patient CBC was unremarkable, patient's chemistries showed a creatinine 1.05, serum was negative. Patient CT scan of the abdomen pelvis shows a mild right hydronephrosis secondary to a tiny partially obstructing stone in the right distal ureter adjacent to calcified phlebolithis. Patient on my reevaluation was resting comfortably. Patient's urine was positive for infection, this was sent for culture. Patient did receive IV Rocephin here. She be given a short course of pain medicine, nausea medicine, as well as Flomax. She is instructed to follow-up outpatient. She will strain her urine. She is instructed return for any worsening symptoms. ED attending note: I evaluated the patient in conjunction with the BIPIN. I agree with his/her statements and above findings. I have personally performed a face to face assessment of the patient and have reviewed the BIPIN Note. I performed a substantive portion of the visit including all aspects of the following. I personally saw the patient performed chart review, physical exam, reviewed labs, imaging (if obtained), and formulated a treatment and management plan. This note was generated with [employer] dictation software. It may contain incorrect words, spelling, and punctuation that were not noted in review of the chart prior to signing. <Dr. Juan Carlos Merritt, DO - Last Filed: 05/26/24 15:01> [facility] Lab Data Labs: Laboratory Results - last 24 hr 05/26/24 05/26/24 13:18 13:22 WBC 10.7 RBC 4.41 Hgb 13.2 Hct 40.3 MCV 91.4 MCH 29.9 MCHC 32.8 RDW Std Deviation 41.1 RDW Coeff of Jerri 12.2 Plt Count 303 MPV 9.8 Immature Gran % (Auto) 0.300 Neut % (Auto) 70.9 H Lymph % (Auto) 20.5 Blount % (Auto) 6.3 Eos % (Auto) 1.7 Baso % (Auto) 0.3 Absolute Neuts (auto) 7.6 Absolute Lymphs (auto) 2.20 Nucleated RBC % 0 Sodium 138 Potassium 3.7 Chloride 108 H Carbon Dioxide 24.0 Anion Gap 7 BUN 12 Creatinine 1.05 H Estim Creat Clear Calc 72.01 Est GFR (MDRD) Af Amer 73 Est GFR (MDRD) Non-Af 61 BUN/Creatinine Ratio 11.4 Glucose 88 Calcium 9.4 Total Bilirubin 0.50 AST 18 ALT 18 Alkaline Phosphatase 61 Total Protein 7.8 Albumin 3.7 Globulin 4.1 Albumin/Globulin Ratio 0.9 Lipase 37 Serum , Qual NEGATIVE Urine Color Yellow Urine Clarity Sl. Cloudy Urine pH 6.0 Ur Specific [place] 1.025 Urine Protein 30 H Urine Glucose (UA) Normal Urine Ketones 50 H Urine Occult Blood 250 H Urine Nitrite Negative Urine Bilirubin Negative Urine Urobilinogen Normal Ur Leukocyte Esterase 25 H Urine RBC 0-5 SEEN Urine WBC 0-5 SEEN Ur Squamous Epith Cells 5-10 SEEN Amorphous Sediment 1+ Urine Bacteria 2+ Urine Mucus 2+ Radiography Diagnostic Testing: Clinical Impression(s) from Imaging Studies Abdomen/Pelvis CT 05/26/24 13:49 IMPRESSION: 1. Mild right hydronephrosis secondary to tiny partially obstructing stone in the right distal ureter adjacent calcified phleboliths. 2. Sigmoid diverticulosis without diverticulitis. Electronically Signed: Rosalino Walter MD at 14:51 EST , Treatment and Re-Evaluation :: Differential diagnosis includes however is not limited to: Obstructing uropathy, pyelonephritis, UTI, infected stone, BRIAN Patient appears generally well, vital signs are stable, patient is nontoxic- appearing. Presenting to the emerged department with complaints of right sided abdominal pain, right-sided flank pain lower back pain for the last 2 to 3 days.Patient's CBC was unremarkable, patient's chemistries show a creatinine of 1.05, this is a jump from 09 May which was 0.7. Patient's serum was negative. Urinalysis did show 2+ bacteria 25 leukocytes, 250 blood. 30 of protein. 50 ketones. Secondary to this finding, patient received CT scan of the abdomen pelvis. Patient given IV fluids, IV Zofran, IV Toradol. All radiologic examinations were read, reviewed by the emergency department attending. From these reads, a plan of care will be put in place. ED attending note: I evaluated the patient in conjunction with the BIPIN. I agree with his/her statements and above findings. I have personally performed a face to face assessment of the patient and have reviewed the BIPIN Note. I performed a substantive portion of the visit including all aspects of the following. I personally saw the patient performed chart review, physical exam, reviewed labs, imaging (if obtained), and formulated a treatment and management plan. This note was generated with [employer] dictation software. It may contain incorrect words, spelling, and punctuation that were not noted in review of the chart prior to signing. Discharge Plan Triage Chief Complaint: Abd Pain ED Midlevel Provider: Osmel Chen ED Provider: Juan Carlos Merritt Dx/Rx/DC Orders Clinical Impression: Kidney stone, Hydronephrosis, UTI (urinary tract infection) Instructions: Urinary Tract Infections in Women, ED Kidney Stone, Passed, ED Kidney Stone with Pain Prescriptions: New oxycodone-acetaminophen [Percocet] 5-325 mg tablet 1 tab PO Q8H PRN (Reason: pain) 3 Days Qty: 10 0RF ondansetron 4 mg tablet,disintegrating 4 mg PO Q8H PRN PRN (Reason: Nausea) Qty: 10 0RF tamsulosin [Flomax] 0.4 mg capsule 0.4 mg PO DAILY Qty: 7 0RF sulfamethoxazole-trimethoprim [Bactrim DS] 800-160 mg tablet 1 tab PO BID Qty: 14 0RF Primary Care Provider: Christine Tenorio Referrals: Christine Tenorio MD [Primary Care Provider] - Activity Restrictions/Additional Instructions: Please follow-up outpatient. Return to the emergency department for worsening uncontrolled pain, nausea vomiting, fever and chills. The Bactrim and Flomax are the only ones you take until the container is empty. The other medications are as needed. Print Language: Polish Disposition Disposition: Home, Self Care
[2024-05-26] MEDS: 0.9% Normal Saline (1000mL) 1,000 ML 999 ML IV (14:05)
[2024-05-26] MEDS: Ketorolac 15 MG/ML Vial IV (14:06)
[2024-05-26] MEDS: Ceftriaxone 1 GM/50 ML BAG IV (14:06)
[2024-05-26] MEDS: Ondansetron 4 MG/2 ML Vial IV (14:06)
[2024-05-26 14:25] LABS: Lipase 37 U/L (13-75)
[2024-05-26 14:49] VITALS: BP 130/80; PULSE 60; RESP 16; O2SAT 100
[2024-05-26 15:22] VITALS: BP 130/80; PULSE 60; RESP 16; TEMP 35.7; O2SAT 100
== END 2024-05-26 15:26 | disposition home or self-care (01) ==
PROVIDERS: Nurse Practitioner; Emergency Provider Emergency Medicine; PCP Internal Medicine; Visit Provider Emergency Medicine
DX: N13.6 Pyonephrosis (principal); Z90.49 Acquired absence of other specified parts of digestive tract; Z96.641 Presence of right artificial hip joint; Z98.51 Tubal ligation status
CPT/HCPCS: 36415; 74176; 80053; 81001; 83690; 84703; 85025; 87086; 87088; 96365; 96375; 99282; A4216; J2405

== ENCOUNTER → 2025-03-27 | Outpatient (CLI) | payer OTHER, SELFPAY ==
--- NOTE | 2025-03-27 10:00 | BI_ITS ---
EXAM: SCRN MAMM (CAD)W/SUJATHA BILAT DATE: 03/27/2025 CLINICAL HISTORY: F, Age 44 y/o , BREAST CANCER SCREENING TECHNIQUE: Procedure Code: [id number] Modality: MG Procedure: SCRN MAMM (CAD)W/SUJATHA BILAT COMPARISON: Prior exam(s) were compared. FINDINGS: TISSUE DENSITY: The breasts are heterogeneously dense, which may obscure small masses. Bilateral Breast Mammographic Findings: No suspicious masses, calcifications or other abnormalities are identified. BI/SCRN MAMM (CAD)W/SUJATHA BILAT IMPRESSION: No mammographic evidence of malignancy in either breast OVERALL FINAL ASSESSMENT BI-RADS 1: NEGATIVE. RECOMMENDATION: Routine annual follow-up in 1 Year Additional Recommendation none A letter with findings and recommendations will be mailed to the patient. Reading Location: [id number]
== END | disposition home or self-care (01) ==
LOC: OPBI 09:37
PROVIDERS: PCP Internal Medicine; Referring Provider Nurse Practitioner Family; Visit Provider Nurse Practitioner Family
DX: Z12.31 Encounter for screening mammogram for malignant neoplasm of breast (principal)
CPT/HCPCS: 77063; 77067

== ENCOUNTER → 2025-05-06 | Outpatient (CLI) | payer OTHER, SELFPAY ==
--- NOTE | 2025-05-06 12:49 | US_ITS ---
PROCEDURE: PELVIC W/ TRANSVAGINAL REASON FOR EXAM: ABNORMAL UTERINE BLEEDING TECHNIQUE: Procedure Code: [id number] Modality: US Procedure: PELVIC W/ TRANSVAGINAL COMPARISON: None FINDINGS: LMP: April 20, 2025. Measurements: Uterus: 10.5 cm x 7.1 cm x 5.1 cm with a volume of 202 mL Endometrial Thickness: 18 mm Right Ovary: 2.5 cm x 2.1 cm x 1.2 cm with a volume of 7.5 mL. Left Ovary: 3.8 cm x 2.4 cm x 3.1 cm with a volume of 17.6 mL. TRANSABDOMINAL: Uterus: Normal size, myometrial echotexture, and contour. Endometrium: Endometrium is thickening measuring 18 mm. It is heterogeneous and hypoechoic. Right ovary: Normal size and echotexture. Left ovary: Normal size and echotexture. Other: No large pelvic mass identified. Transvaginal sonography was performed to better visualize the endometrium. TRANSVAGINAL: Uterus: Anteverted. Normal contour and myometrial echotexture. Endometrium: Endometrial thickening measuring 18 mm. Right ovary: Normal size and echotexture. Left ovary: Normal size and echotexture. Other adnexal findings: None. Cul-de-sac: No free intraperitoneal fluid identified. Tenderness: No tenderness US/Pelvic w/ Transvaginal IMPRESSION: Endometrial thickening measuring 18 mm. Reading Location: [facility]
== END | disposition home or self-care (01) ==
PROVIDERS: PCP Internal Medicine; Referring Provider Nurse Practitioner Family; Visit Provider Nurse Practitioner Family
DX: N93.9 Abnormal uterine and vaginal bleeding, unspecified (principal)
CPT/HCPCS: 76830; 76856

== ENCOUNTER → 2025-05-15 | Outpatient (CLI) | payer OTHER, SELFPAY ==
[2025-05-15 12:40] LABS: Hematocrit 38.4 % (37-47); Hemoglobin 12.8 g/dL (12.0-15.0); Immature Granulocytes Count 0.020 X10^3/uL (0.0-0.0); Mean Corp Hgb Conc 33.3 g/dL (32-36); Mean Corpuscular Volume 90.6 fL (81-99); Mean Platelet Vol. 10.9 fl (6.2-12.0); NRBC Flagged by Analyzer 0 % (0-5); Platelet Count 297 K/mm3 (150-450); RBC Distribution Width CV 12.8 % (11.6-14.6); RBC Distribution Width SD 42.4 fl (35.1-43.9); Red Blood Count 4.24 M/mm3 (4.2-5.4); White Blood Count 7.2 K/mm3 (4.4-11.0)
[2025-05-15 12:54] LABS: AST(SGOT) 20 U/L (<=31); Alanine Aminotransfer ALT/SGPT 15 U/L (<=34); Albumin, Serum 4.2 g/dL (3.5-5.0); Alkaline Phosphatase 57 U/L (35-104); Anion Gap 10 (5-15); BUN 11 mg/dL (4-19); BUN/Creat Ratio 15.3 RATIO (10-20); Calcium,Total 9.4 mg/dL (7.6-11.0); Carbon Dioxide 23.6 mmol/L (21.0-32.0); Chloride 104 mmol/L (98-108); Cholesterol 234 mg/dL (<=200); Globulin 3.6 g/dL (2.2-4.2); Glucose 92 mg/dL (70-99); Low Density Lipoprotein Calc. 135 mg/dL; Potassium 4.1 mmol/L (3.3-5.1); Triglycerides 63 mg/dL; Very Low Density Lipoprotein 13 mg/dL (5-40); cholesterol:hdl ratio screen 2.64
== END | disposition home or self-care (01) ==
LOC: MTLAB 10:31
PROVIDERS: PCP Internal Medicine; Referring Provider Internal Medicine; Visit Provider Internal Medicine
DX: Z00.00 Encounter for general adult medical examination without abnormal findings (principal)
CPT/HCPCS: 36415; 80053; 80061; 85025